=== PATIENT | male | born 1980 | race Caucasian/White ===

== ENCOUNTER 2024-06-17 21:06 | Emergency (ER) | payer OTHER ==
[2024-06-17 21:16] VITALS: BP 101/58; PULSE 98; RESP 18; TEMP 99.5; BMI 29.6
[2024-06-17] MEDS ORDERED: IBUPROFEN 400 MG TABLET (FP) PO ONE (22:36)
[2024-06-17] MEDS: IBUPROFEN 400 MG TABLET (FP) PO ONE (22:37)
[2024-06-18 06:04] LABS: THROAT:GRP A STREP DETECTED (NOTDETECTED)
== END 2024-06-18 01:23 | disposition home or self-care (01) ==
LOC: JER 21:06
DX: J02.0 Streptococcal pharyngitis (principal)
CPT/HCPCS: 0241U-QW; 71046-TC-FY; 87651; 99284-25